=== PATIENT | female | born 1975 | race Caucasian/White ===

== ENCOUNTER 2016-05-21 18:30 | Inpatient (IN) | payer BC ==
[~2016-05-21] VITALS: Ht 157.5 cm; Wt 59.6 kg
[~2016-05-21 18:30] MED LIST: CANA300T PO; LISI10TA3 PO; METF1000 PO; NORE1CHW4 PO; ZOLO25TA PO
[2016-05-21 18:32] VITALS: BP 133/75; PULSE 105; RESP 16; TEMP 98.1; O2SAT 100
[2016-05-21] MEDS ORDERED: INSU1INJ14 SQ (18:50)
[2016-05-21] MEDS ORDERED: NOVOLOGP2 SQ (18:50)
[2016-05-21 19:01] VITALS: BP 126/63; PULSE 110; RESP 18; TEMP 97.8; O2SAT 98
[2016-05-21] MEDS ORDERED: SODIUM CHLOR 0.9% 1000 ML INJ 1,000 ML IV ONE ×2 (19:11→21:00)
[2016-05-21] MEDS ORDERED: ONDANSETRON HCL 4 MG/2 ML VIAL IV PUSH ONE ×2 (19:15→21:15)
[2016-05-21] MEDS ORDERED: SODIUM CHLORIDE 0.9% FLUSH 10 ML FLUSH IVF PRN ×2 (19:15→21:30)
--- NOTE | 2016-05-21 19:15 | PD ---
HPI Chief Complaint: GI Complaint Time Seen by Provider: 19:11 Travel History International Travel<30 days: No Contact w/Intl Traveler<30days: No Traveled to known affect area: No History of Present Illness HPI 40-year-old female with type 1 diabetes presents to the emergency department with recent exposure to GI illness. Patient reportedly cares for 2 children who 've had a GI bug with vomiting and diarrhea. Patient noted yesterday started to feel slightly ill but then today noticed nausea with vomiting. Patient has vomited 4 times. Initially patient vomited stomach contents but denies coffee- ground emesis or hematemesis. Patient denies any abdominal pain. Patient denies any diarrhea. Patient notes that she has had some moderate ketones in her urine. Patient reports blood sugars have been well-controlled. Patient's had poor oral intake today. has had same dietary intake denies any similar symptoms. Patient has had no fever or chills. Patient denies dysuria frequency urgency flank pain or hematuria. Patient denies any respiratory illness symptoms. Patient denies chest pain or referred neck jaw back shoulder arm or abdominal pain. No report of headache. Patient also has history of hypertension. [facility] Past Medical History Narrative Medical Anxiety, diabetes, hypertension, inguinal hernia, tubal ligation, herniorrhaphy , breast augmentation, , occasional alcohol use; nursing notes reviewed Hx Anticoagulant Therapy: No Anxiety: Yes Depression: No Cancer: No Cardiovascular Problems: Yes (HTN) Diabetes: Yes Patient Takes Glucophage: Yes Diminished Hearing: No Endocrine: Yes Hypertension: Yes Immune Disorder: No Inguinal Hernia: Yes Implanted Vascular Access Dvce: Yes Musculoskeletal: No Neurologic: No Psychiatric: Yes Reproductive: No Respiratory: No Tetanus Vaccination: < 5 Years Influenza Vaccination: No ?: Not LMP: Approx. 2 weeks ago Tubal Ligation: Yes Past Surgical History Abdominal Surgery: Yes (Hernia) Body Medical Devices: Breast implants Section: Yes (X's 3) Gynecologic Surgery: Yes (3 C SECTIONS/ BREAST AUGMENTATION.) Other Surgery: Yes (Breast augmentation) Social History Alcohol Use: Yes (Social) Tobacco Use: No Substance Use: No Allergies-Medications (Allergen,Severity, Reaction): Coded Allergies: No Known Allergies (Verified , 05/21/16) Reported Meds & Prescriptions Reported Meds & Active Scripts Active Reported Farxiga (Dapagliflozin) 10 Mg Tab 10 Mg PO DAILY Tresiba Flextouch Pen Inj (Insulin Degludec Inj) 300 unit/3 ML Pen 1 Units SQ DAILY Novolog Inj (Insulin Aspart) 1,000 Unit/10 Ml Vial 5-25 Units SQ DIRECTED Max dose at bedtime:( )units; sugars less than 70,(0) units; sugars 150-199,(5) units; sugars 200-249,(10) units; sugars 250-299,(15) units; sugars 300-349,(20)units; sugars greater than 349,(25)units Zoloft (Sertraline HCl) 25 Mg Tab 100 Mg PO DAILY Minastrin 24 Fe (Norethindrone-Ethinyl Estradiol-Fe) 1-20 Mg-Mcg Chew 1 Tab PO DAILY Metformin (Metformin HCl) 1,000 Mg Tab 1 Tab PO BIDPC With meals Lisinopril 10 Mg Tab 1 Tab PO DAILY Review of Systems Except as stated in HPI: all other systems reviewed are Neg General / Constitutional: No: Fever HENT: No: Sore Throat, Congestion Cardiovascular: No: Chest Pain or Discomfort Respiratory: No: Shortness of Breath Gastrointestinal: Positive: Nausea, Vomiting, No: Diarrhea, Abdominal Pain Genitourinary: No: Urgency, Frequency, Dysuria, Flank Pain Musculoskeletal: No: Myalgias, Arthralgias Skin: No Rash Neurologic: Positive: Weakness, No: Dizziness, Syncope, Focal Abnormalities, Coordination Problem Psychiatric: No: Anxiety Hematologic/Lymphatic: No: Lymph Node Enlargement Physical Exam Narrative GENERAL: Well-developed well-nourished female in no acute distress no respiratory distress; GCS 15; triage vital signs and normal range except for tachycardia heart rate: 105-110 bpm SKIN: Warm and dry. HEAD: Normocephalic. EYES: No scleral icterus. No injection or drainage. ENT: Mucous membranes moist. Airway is patent. NECK: Supple, trachea midline. No JVD or lymphadenopathy. CARDIOVASCULAR: increased Regular rate and rhythm without murmurs, gallops, or rubs. RESPIRATORY: Breath sounds equal bilaterally. No accessory muscle use. GASTROINTESTINAL: Abdomen soft, non-tender, nondistended. MUSCULOSKELETAL: No cyanosis, or edema. BACK: Nontender without obvious deformity. No CVA tenderness. Data Data Last Documented VS Vital Signs Date Time Temp Pulse Resp B/P Pulse Ox O2 Delivery O2 Flow Rate FiO2 05/21/16 20:10 98 17 113/56 100 Room Air 05/21/16 19:01 97.8 Orders Complete Blood Count With Diff (05/21/16 19:11) Comprehensive Metabolic Panel (05/21/16 19:11) Magnesium (Mg) (05/21/16 19:11) Beta Hydroxybutyrate (Acetone) (05/21/16 19:11) Lactic Acid (05/21/16 19:11) Urinalysis - C+S If Indicated (05/21/16 19:11) Blood Glucose (05/21/16 19:11) Blood Glucose (05/21/16 19:41) Ecg Monitoring (05/21/16 19:11) Iv Access Insert/Monitor (05/21/16 19:11) Oximetry (05/21/16 19:11) NPO (05/21/16 19:11) Sodium Chloride 0.9% Flush (Ns Flush) (05/21/16 19:15) Sodium Chlor 0.9% 1000 Ml Inj (Ns 1000 M (05/21/16 19:11) Lipase (05/21/16 19:11) Ondansetron Inj (Zofran Inj) (05/21/16 19:15) Ed Urine Pregnancytest Poc (05/21/16 19:15) Blood Gas Venous Ph (05/21/16 20:49) Sodium Chlor 0.9% 1000 Ml Inj (Ns 1000 M (05/21/16 21:00) Ondansetron Inj (Zofran Inj) (05/21/16 21:15) Lorazepam Inj (Ativan Inj) (05/21/16 21:15) Admit Order (Ed Use Only) (05/21/16 ) ^ Saline Lock (05/21/16 21:16) Resp Oxygen Abdi C Titrat 1-4 L (05/21/16 ) Notify Dr: Other (05/21/16 21:16) Sodium Chloride 0.9% Flush (Ns Flush) (05/22/16 09:00) Sodium Chloride 0.9% Flush (Ns Flush) (05/21/16 21:30) Labs Laboratory Tests Test 05/21/16 05/21/16 05/21/16 19:40 20:05 21:00 White Blood Count 14.1 TH/MM3 Red Blood Count 4.67 MIL/MM3 Hemoglobin 15.4 GM/DL Hematocrit 45.5 % Mean Corpuscular Volume 97.4 FL Mean Corpuscular Hemoglobin 32.9 PG Mean Corpuscular Hemoglobin 33.8 % Concent Red Cell Distribution Width 11.9 % Platelet Count 296 TH/MM3 Mean Platelet Volume 8.4 FL Neutrophils (%) (Auto) 84.4 % Lymphocytes (%) (Auto) 5.6 % Monocytes (%) (Auto) 4.7 % Eosinophils (%) (Auto) 0.8 % Basophils (%) (Auto) 4.5 % Neutrophils # (Auto) 11.9 TH/MM3 Lymphocytes # (Auto) 0.8 TH/MM3 Monocytes # (Auto) 0.7 TH/MM3 Eosinophils # (Auto) 0.1 TH/MM3 Basophils # (Auto) 0.6 TH/MM3 CBC Comment DIFF FINAL Differential Comment Sodium Level 140 MEQ/L Potassium Level 3.8 MEQ/L Chloride Level 103 MEQ/L Carbon Dioxide Level 22.3 MEQ/L Anion Gap 15 MEQ/L Blood Urea Nitrogen 17 MG/DL Creatinine 0.71 MG/DL Estimat Glomerular Filtration 90 ML/MIN Rate Random Glucose 137 MG/DL Lactic Acid Level 1.7 mmol/L Calcium Level 8.4 MG/DL Magnesium Level 1.9 MG/DL Total Bilirubin 0.6 MG/DL Aspartate Amino Transf 14 U/L (AST/SGOT) Alanine Aminotransferase 19 U/L (ALT/SGPT) Alkaline Phosphatase 58 U/L Total Protein 7.0 GM/DL Albumin 3.5 GM/DL Lipase 101 U/L B-Hydroxybutyrate 3.42 MMOL/L Urine Color YELLOW Urine Turbidity CLEAR Urine pH 6.0 Urine Specific [place] GREATER THAN 1.035 Urine Protein NEG mg/dL Urine Glucose (UA) 500 mg/dL Urine Ketones 80 OR GREATER mg/dL Urine Occult Blood NEG Urine Nitrite NEG Urine Bilirubin NEG Urine Leukocyte Esterase NEG Urine WBC 0-2 /hpf Urine Squamous Epithelial 6-8 /hpf Cells Urine Mucus FEW /lpf Urine Yeast (Budding) FEW Microscopic Urinalysis Comment CULT NOT INDICATED Venous Blood pH 7.36 MDM Medical Decision Making Medical Screen Exam Complete: Yes Emergency Medical Condition: Yes Medical Record Reviewed: Yes Interpretation(s) Vital Signs Date Time Temp Pulse Resp B/P Pulse Ox O2 Delivery O2 Flow Rate FiO2 05/21/16 20:10 98 17 113/56 100 Room Air 05/21/16 19:01 97.8 110 18 126/63 98 Room Air 05/21/16 18:32 98.1 105 16 133/75 100 venous pH: 7.36 CBC & BMP Diagram 05/21/16 19:40 BHB: 3.42, elevated Differential Diagnosis Viral syndrome, gastroenteritis, electrolyte disturbance, DKA, dehydration Narrative Course Patient is a grey tender IV access obtained specimens collected and sent for resulting patient administered 1 L normal saline along with Zofran 4 mg IV; Accu-Chek at bedside ordered, 114, as well as [id number] test receiving iv fluids nausea improved taking ice chips @ 21:10 recurrent nausea, no vomiting --additional zofran 4 mg iv, second liter NS and x 1 dose ativan 0.5 mg iv BHB elevated at 3.42, with dehydration urine specific gravity greater than 1.035 ; will admit for iv fluids close monitoring of blood sugars in view of long acting tresiba and farxiga; patiernt and spouse aware case discussed with --admit to intermediate care Dr Almanzar Physician Communication Physician Communication call placed to -- discussed with Amanda NARVAEZ --admit to Dr Fabio Almanzar to intermediate care Diagnosis Primary Impression: Uncontrolled diabetes mellitus Additional Impressions: Gastroenteritis Dehydration Admitting Information Admitting Physician Requests: Admit Heather German MD May 21, 2016 19:15 Heather German MD May 21, 2016 19:15
[2016-05-21 19:49] LABS: AUTOMATED NEUTROPHIL # 11.9 TH/MM3 (1.8-7.7); BASOPHIL # 0.6 TH/MM3 (0-0.2); BASOPHIL % 4.5 % (0.0-2.0); EOSINOPHIL # 0.1 TH/MM3 (0-0.4); EOSINOPHIL % 0.8 % (0.0-4.0); HEMATOCRIT 45.5 % (35.0-46.0); LYMPH % 5.6 % (9.0-44.0); LYMPHOCYTE # 0.8 TH/MM3 (1.0-4.8); MEAN CELL VOLUME 97.4 FL (80.0-100.0); MEAN CORPUSCULAR HEMOGLOBIN 32.9 PG (27.0-34.0); MEAN CORPUSCULAR HGB CONC 33.8 % (32.0-36.0); MONO % 4.7 % (0.0-8.0); NEUT % 84.4 % (16.0-70.0); PLATELET COUNT 296 TH/MM3 (150-450); RED BLOOD COUNT 4.67 MIL/MM3 (4.00-5.30); RED CELL DISTRIBUTION WIDTH 11.9 % (11.6-17.2); WHITE BLOOD COUNT 14.1 TH/MM3 (4.0-11.0)
[2016-05-21 19:56] LABS: CHLORIDE 103 MEQ/L (98-107); POTASSIUM 3.8 MEQ/L (3.5-5.1); SODIUM (NA) 140 MEQ/L (136-145)
[2016-05-21] MEDS ORDERED: DAPA1TAB3 PO (19:57)
[2016-05-21 19:58] LABS: HEMO FLAGS DIFF FINAL
[2016-05-21 20:00] LABS: ANION GAP 15 MEQ/L (5-15); BICARBONATE 22.3 MEQ/L (21.0-32.0); BLOOD UREA NITROGEN 17 MG/DL (7-18); MAGNESIUM 1.9 MG/DL (1.5-2.5)
[2016-05-21 20:03] LABS: ALT (GPT) 19 U/L (10-53); AST (GOT) 14 U/L (15-37); BETA-HYDROXYBUTYRATE 3.42 MMOL/L (0.00-0.39); GLOMERULAR FILTRATION RATE 90 ML/MIN (>89)
[2016-05-21 20:04] LABS: TOTAL BILIRUBIN ADULT 0.6 MG/DL (0.2-1.0)
[2016-05-21 20:05] LABS: ALKALINE PHOSPHATASE 58 U/L (45-117)
[2016-05-21 20:10] VITALS: BP 113/56; PULSE 98; RESP 17; O2SAT 100
[2016-05-21 20:15] LABS: BLOOD, URINE NEG (NEG); GLUCOSE,URINE 500 mg/dL (NEG); NITRITE,URINE NEG (NEG)
[2016-05-21 20:22] LABS: KETONE, URINE 80 OR GREATER mg/dL (NEG)
[2016-05-21 20:24] LABS: URINE COLOR YELLOW (YELLW/STRAW)
[2016-05-21 20:25] LABS: COMMENT (UR) CULT NOT INDICATED; CULTURE IF INDICATED CULT NOT INDICATED; MUCUS URINE FEW /lpf (OCC); WBC, URINE 0-2 /hpf (0-5)
[2016-05-21 21:10] VITALS: BP 118/52; PULSE 104; RESP 18; O2SAT 99
[2016-05-21] MEDS ORDERED: LORazepam 2 MG/ML VIAL IV PUSH ONE (21:15)
[2016-05-21] MEDS ORDERED: NALOXONE HCL 0.4 MG/ML AMP IV PRN (21:30)
[2016-05-21] MEDS ORDERED: GLUCAGON 1 MG/ML VIAL OTHER PRN (21:30)
[2016-05-21] MEDS ORDERED: METOCLOPRAMIDE HCL 10 MG/2 ML VIAL IV PUSH PRN (21:30)
[2016-05-21] MEDS ORDERED: ONDANSETRON HCL 4 MG/2 ML VIAL IVP PRN (21:30)
[2016-05-21] MEDS ORDERED: DEXTROSE 50% IN WATER 50 ML VIAL(D50) IV PUSH PRN (21:30)
[2016-05-21] MEDS ORDERED: SODIUM CHLORIDE 0.9% FLUSH 10 ML FLUSH IV FLUSH PRN (21:30)
[2016-05-21] MEDS ORDERED: ACETAMINOPHEN 325 MG TAB PO PRN (21:30)
[2016-05-21 22:05] VITALS: BP 117/62; PULSE 107; RESP 19; TEMP 98.4; O2SAT 100
[2016-05-21] MEDS: PANTOPRAZOLE SODIUM 40 MG VIAL IV PUSH SCH (22:23)
[2016-05-21] MEDS: SODIUM CHLOR 0.9% 1000 ML INJ 1,000 ML IV SCH (22:24)
[2016-05-21 23:30] VITALS: BP 116/58; PULSE 108; RESP 16; TEMP 98; O2SAT 97
[2016-05-22] VITALS (10 sets, daily range): BP systolic 97–117; BP diastolic 49–57; PULSE 95–120; RESP 16–23; TEMP 97.6–99.1; O2SAT 95–99
[2016-05-22 06:12] LABS: AUTOMATED NEUTROPHIL # 7.4 TH/MM3 (1.8-7.7); BASOPHIL % 0.3 % (0.0-2.0); EOSINOPHIL % 0.6 % (0.0-4.0); HEMATOCRIT 39.7 % (35.0-46.0); HEMO FLAGS DIFF FINAL; LYMPH % 4.4 % (9.0-44.0); LYMPHOCYTE # 0.4 TH/MM3 (1.0-4.8); MEAN CELL VOLUME 98.3 FL (80.0-100.0); MEAN CORPUSCULAR HEMOGLOBIN 33.4 PG (27.0-34.0); MONO % 4.3 % (0.0-8.0); NEUT % 90.4 % (16.0-70.0); PLATELET COUNT 216 TH/MM3 (150-450); RED BLOOD COUNT 4.04 MIL/MM3 (4.00-5.30); RED CELL DISTRIBUTION WIDTH 12.7 % (11.6-17.2); WHITE BLOOD COUNT 8.2 TH/MM3 (4.0-11.0)
[2016-05-22 06:24] LABS: BICARBONATE 13.8 MEQ/L (21.0-32.0); POTASSIUM 3.7 MEQ/L (3.5-5.1)
[2016-05-22 06:50] LABS: CALCIUM-PROTEIN CORRECTED 7.3 MG/DL (8.5-10.1)
[2016-05-22] MEDS: INSULIN ASPART SUPPLEMENTAL SCALE SQ SCH ×4 (06:59→20:55)
[2016-05-22] MEDS: SERTRALINE HCL 50 MG TAB PO SCH (08:48)
[2016-05-22] MEDS: SODIUM CHLORIDE 0.9% FLUSH 10 ML FLUSH IV FLUSH SCH ×2 (08:49→20:55)
[2016-05-22] MEDS ORDERED: SODIUM CHLORIDE 0.9% FLUSH 10 ML FLUSH IV FLUSH SCH (09:00)
[2016-05-22] MEDS: SODIUM CHLOR 0.9% 1000 ML INJ 1,000 ML IV SCH ×2 (12:34→16:56)
[2016-05-22] MEDS: metFORMIN HCL 500 MG TAB PO SCH ×2 (12:34→18:12)
--- NOTE | 2016-05-22 12:54 | MH ---
cc: FABIO JUSTICE MD DATE OF ADMISSION: 05/21/2016 CHIEF COMPLAINT Nausea, vomiting. HISTORY OF PRESENT ILLNESS This is a 40-year-old with past medical-surgical history significant for type 1 diabetes mellitus, anxiety, hypertension and inguinal hernia, tubal ligation, herniorrhaphy, breast augmentation, x3 who came to the emergency room at the [facility] having nausea, vomiting and unable to keep anything down. Also having diarrhea, she started feeling these symptoms two days ago. She vomited four times initially, and then stomach, content came out but denies any coffee ground emesis or hematemesis. The patient denies any abdominal pain. Denies any fever or chills. Denies any chest pain, shortness of breath. She has some moderate ketones in the urine. She said her sugar has been well-controlled. The patient has a poor oral intake. Denies any frequency, painful urination, burning urination. Denies any headache, blurred vision or any neurological symptoms. Denies any chest pain, shortness of breath or any other symptoms. she is feeling much better after IV hydration and treatment other than that nothing significant. PAST MEDICAL HISTORY/PAST SURGICAL HISTORY: Past medical-surgical history as dictated above. SOCIAL HISTORY She denies smoking, drinking. She denies smoking but drinks socially. Denies any drug abuse. Lives at home with . She does not work. FAMILY HISTORY Nothing significant. ALLERGIES NO KNOWN DRUG ALLERGIES. MEDICATIONS Include 1. Farxiga 10 mg p.o. daily 2. Tresaba 3. 1 unit subcutaneous daily. 4. NovoLog injection 5/25 units subcutaneous as directed 5. Zoloft 25 mg p.o. daily 6. Metformin 1000 mg twice a day 7. Lisinopril 10 mg p.o. daily. REVIEW OF SYSTEMS Feeling weak and tired all other review of systems negative at the time of examination. PHYSICAL EXAMINATION IN GENERAL: This is 40 female sitting on the bed not in acute distress. VITAL SIGNS: Temperature 98.1, heart rate of 104, respiration 20, blood pressure 97/49, O2 saturation 98% room air. HEAD, EYES, EARS, NOSE, AND THROAT: Normocephalic, atraumatic. Extraocular muscles intact pupils equal, round, reactive to light and accommodation. Oral mucosa moist. NECK: Neck is supple. No thyromegaly or neck mass. Trachea central. CARDIOVASCULAR SYSTEM: Regular rate and rhythm. Tachycardiac. RESPIRATORY: Clear to auscultation bilaterally. ABDOMEN: Soft, nontender. Bowel sounds audible EXTREMITIES: No cyanosis or clubbing. Full range of motion of all extremities. NEUROLOGIC: Awake, alert, oriented x4. No focal deficits. SKIN: Warm and dry. PSYCHIATRIC: The patient is cooperative mood, and affect is normal. LABORATORY DATA Include CBC was totally unremarkable except for WBC count was 14.1. Now it is 8.2. Neutrophils percentage was high 90.4 lymph percentage is low at 4.4. ABGs done with pH of 7.36. BMP totally unremarkable except for chloride 111, carbon oxide 13.8 low, anion gap 18 high, glucose 166 high, calcium 6.5 low portal corrected calcium is 7.3, total protein 5.4 3.42 high. Urine examination shows negative leukocyte is leukocyte esterase 02, WBC in the urine, negative nitrite. 80 or greater ketones, glucose more than 500. Culture not indicated. ASSESSMENT/PLAN This is a 46-year-old female who came to the ER diagnosed with nausea or vomiting, most likely viral gastroenteritis and dehydration. The patient started on IV fluid. The patient feel lot better. The patient nausea, vomiting has resolved. The patient on Zofran monitoring blood sugar. Tachycardia secondary to dehydration. Dehydration. The patient is on IV fluid feels better. Diabetes mellitus ADA 1800 regular diet. NovoLog low-dose sliding scale. Blood sugars at bedtime will monitor blood sugar. History of hypertension, the patients blood pressure is low. Holding blood pressure medicine. We will monitor his blood pressure closely. History of depression. Continue home medication. DVT prophylaxis. SCDs. GI prophylaxis Protonix 40 mg IV q. 24-hours. We are going to manage the patient on daily basis and make recommendations on a daily basis. Fabio Justice MD EA/deanne /10:56 AM /11:05 AM
[2016-05-22] MEDS: ACETAMINOPHEN 500 MG CPLT PO PRN (16:41)
[2016-05-22] MEDS: PANTOPRAZOLE SODIUM 40 MG VIAL IV PUSH SCH (21:29)
[2016-05-22] MEDS ORDERED: ZOLPIDEM TARTRATE 5 MG TAB PO PRN (22:00)
[2016-05-23] VITALS: BP 101/59; PULSE 86; RESP 21; TEMP 97.7; O2SAT 97
[2016-05-23] MEDS: SODIUM CHLOR 0.9% 1000 ML INJ 1,000 ML IV SCH (01:58)
[2016-05-23 04:00] VITALS: BP 108/56; PULSE 87; RESP 20; TEMP 98.6; O2SAT 97
[2016-05-23] MEDS: INSULIN ASPART SUPPLEMENTAL SCALE SQ SCH (06:24)
[2016-05-23 07:15] LABS: AUTOMATED NEUTROPHIL # 4.4 TH/MM3 (1.8-7.7); BASOPHIL % 0.4 % (0.0-2.0); CHLORIDE 114 MEQ/L (98-107); EOSINOPHIL # 0.2 TH/MM3 (0-0.4); EOSINOPHIL % 3.2 % (0.0-4.0); HEMATOCRIT 38.6 % (35.0-46.0); HEMO FLAGS DIFF FINAL; LYMPH % 14.6 % (9.0-44.0); LYMPHOCYTE # 0.9 TH/MM3 (1.0-4.8); MEAN CELL VOLUME 100.1 FL (80.0-100.0); MEAN CORPUSCULAR HEMOGLOBIN 33.2 PG (27.0-34.0); MEAN CORPUSCULAR HGB CONC 33.2 % (32.0-36.0); MONO % 9.3 % (0.0-8.0); NEUT % 72.5 % (16.0-70.0); PLATELET COUNT 213 TH/MM3 (150-450); POTASSIUM 3.7 MEQ/L (3.5-5.1); RED BLOOD COUNT 3.86 MIL/MM3 (4.00-5.30); RED CELL DISTRIBUTION WIDTH 13.5 % (11.6-17.2); SODIUM (NA) 145 MEQ/L (136-145); WHITE BLOOD COUNT 6.1 TH/MM3 (4.0-11.0)
[2016-05-23 07:40] LABS: ALKALINE PHOSPHATASE 69 U/L (45-117); ALT (GPT) 14 U/L (10-53); ANION GAP 15 MEQ/L (5-15); AST (GOT) 15 U/L (15-37); BICARBONATE 16.4 MEQ/L (21.0-32.0); BLOOD UREA NITROGEN 6 MG/DL (7-18); GLOMERULAR FILTRATION RATE 138 ML/MIN (>89); TOTAL BILIRUBIN ADULT 0.4 MG/DL (0.2-1.0)
[2016-05-23] MEDS: SERTRALINE HCL 50 MG TAB PO SCH (07:48)
[2016-05-23] MEDS: metFORMIN HCL 500 MG TAB PO SCH (07:48)
[2016-05-23] MEDS: SODIUM CHLORIDE 0.9% FLUSH 10 ML FLUSH IV FLUSH SCH (07:49)
[2016-05-23 08:00] VITALS: BP 112/62; PULSE 100; RESP 19; TEMP 98.2; O2SAT 97
[2016-05-23] MEDS: ACETAMINOPHEN 500 MG CPLT PO PRN (09:43)
--- NOTE | 2016-05-23 09:46 | HHI.PR ---
Subjective History of Present Illness Patient feel better no acute issue wants to go home .. ok to DC Home today Review of Systems Constitutional Constitutional: Fatigue Vitals/Results Intake & Output 05/22/16 05/22/16 05/23/16 15:00 23:00 07:00 Intake Total 2092 ml 1085 ml Output Total 2100 ml 150 ml Balance -8 ml 935 ml Intake Oral 960 ml 240 ml IV Total 1132 ml 845 ml Output Urine Total 2100 ml 150 ml # Bowel Movements 0 0 Vital Signs Vital Signs Date Time Temp Pulse Resp B/P Pulse Ox O2 Delivery O2 Flow Rate FiO2 05/23/16 08:00 98.2 100 19 112/62 97 05/23/16 04:00 87 05/23/16 04:00 98.6 87 20 108/56 97 05/23/16 00:00 86 05/23/16 00:00 97.7 86 21 101/59 97 05/22/16 20:17 99 21 05/22/16 20:00 98.3 96 17 117/57 95 05/22/16 20:00 95 05/22/16 19:00 96 21 107/56 95 05/22/16 16:00 98.3 100 23 117/57 05/22/16 16:00 106 05/22/16 12:00 112 05/22/16 12:00 99.1 108 23 104/54 97 05/22/16 10:00 120 CBC/BMP: 05/23/16 0625 05/23/16 0625 Lab Results Laboratory Tests Test 05/23/16 06:25 White Blood Count 6.1 TH/MM3 Red Blood Count 3.86 MIL/MM3 Hemoglobin 12.8 GM/DL Hematocrit 38.6 % Mean Corpuscular Volume 100.1 FL Mean Corpuscular Hemoglobin 33.2 PG Mean Corpuscular Hemoglobin 33.2 % Concent Red Cell Distribution Width 13.5 % Platelet Count 213 TH/MM3 Mean Platelet Volume 8.7 FL Neutrophils (%) (Auto) 72.5 % Lymphocytes (%) (Auto) 14.6 % Monocytes (%) (Auto) 9.3 % Eosinophils (%) (Auto) 3.2 % Basophils (%) (Auto) 0.4 % Neutrophils # (Auto) 4.4 TH/MM3 Lymphocytes # (Auto) 0.9 TH/MM3 Monocytes # (Auto) 0.6 TH/MM3 Eosinophils # (Auto) 0.2 TH/MM3 Basophils # (Auto) 0.0 TH/MM3 CBC Comment DIFF FINAL Differential Comment Sodium Level 145 MEQ/L Potassium Level 3.7 MEQ/L Chloride Level 114 MEQ/L Carbon Dioxide Level 16.4 MEQ/L Anion Gap 15 MEQ/L Blood Urea Nitrogen 6 MG/DL Creatinine 0.49 MG/DL Estimat Glomerular Filtration 138 ML/MIN Rate Random Glucose 141 MG/DL Calcium Level 7.6 MG/DL Total Bilirubin 0.4 MG/DL Aspartate Amino Transf 15 U/L (AST/SGOT) Alanine Aminotransferase 14 U/L (ALT/SGPT) Alkaline Phosphatase 69 U/L Total Protein 5.3 GM/DL Albumin 2.6 GM/DL Physical Exam General General Appearance: No Acute Distress, Comfortable Eyes Eye Exam: Pupils Equal, Pupils Reactive, Sclera White, Extraocular Movement Intact Ears & Nose Ears & Nose Exam: Tympanic Membranes Normal, Auditory Canals Normal, Nasal Mucosa Privateer Throat Throat Exam: Oral Mucosa [place] & Moist, Oral Pharynx Normal Neck Neck Exam: Neck Supple, Trachea Midline Pulmonary Resp Exam: Clear Bilaterally, Breath Sounds Equal, No Distress Cardiology CV Exam: Regular, Normal Sinus Rhythm, Good Perfusion Musculoskeletal MS Exam: Normal Tone Integumentary Skin Exam: Clear, Warm, Dry, Intact, Normal Turgor Neurologic Neuro Exam: Alert, Awake, Oriented, Speech Clear, Moving All Extremities, No Focal Deficits VTE Prophylaxis VTE Prophylaxis Meds: Heparin PUD Prophylasis PUD Prophylaxis: Protonix Assessment/Plan Assessment/Plan ASSESSMENT/PLAN This is a 46-year-old female who came to the ER diagnosed with nausea or vomiting, most likely viral gastroenteritis and dehydration. The patient started on IV fluid. The patient feel lot better. The patient nausea, vomiting has resolved. The patient on Zofran monitoring blood sugar. Tachycardia secondary to dehydration. Dehydration. The patient is on IV fluid feels better. Diabetes mellitus ADA 1800 regular diet. NovoLog low-dose sliding scale. Blood sugars at bedtime will monitor blood sugar. History of hypertension, the patients blood pressure is low. Holding blood pressure medicine. We will monitor his blood pressure closely. History of depression. Continue home medication. DVT prophylaxis. SCDs. GI prophylaxis Protonix 40 mg IV q. 24-hours. OK to DC Home today. f/u with PCP/1 week. condition at discharge good, Activity as tolerated. diet cardiac. medicine see discharge medicine list. Discussed Condition with: Patient Fabio Almanzar MD May 23, 2016 09:46
== END 2016-05-23 10:30 | disposition home or self-care (01) | DRG 641 ==
LOC: PHED 18:30 → PHEDA 21:17 → PHICU 23:11
PROVIDERS: ADMIT Family Medicine; ATTEND Family Medicine
DX: E86.0 Dehydration (principal); A08.4 Viral intestinal infection, unspecified; E10.65 Type 1 diabetes mellitus with hyperglycemia; I10 Essential (primary) hypertension; Z79.4 Long term (current) use of insulin; F32.9 Major depressive disorder, single episode, unspecified; F41.9 Anxiety disorder, unspecified
CPT/HCPCS: 80048; 80053; 81001; 82010; 82800; 82948; 83605; 83690; 83735; 84155; 84703; 85025; 96361; 96374; 96375; 96376; C9113; J1815; J2060; J2405; J2765; J7030